=== PATIENT | male | born 1975 | race African-American/Black ===

== ENCOUNTER 2018-04-05 23:11 | Emergency (ER) | payer MEDICAID ==
[~2018-04-05] VITALS: Ht 157.5 cm; Wt 68.2 kg
[2018-04-05 23:13] VITALS: Ht 157.5 cm; Wt 68.2 kg
[2018-04-05] MEDS ORDERED: ADVIL200 MG PO (23:15)
[2018-04-05] MEDS ORDERED: BENADRYL25 MG PO (23:16)
[2018-04-05] MEDS ORDERED: PEPTO-BISMOL262 M1 PO (23:16)
[2018-04-05] MEDS ORDERED: MILK OF MAGNESI30 ML PO (23:16)
[2018-04-05] MEDS ORDERED: COLACE100 MG PO (23:16)
[2018-04-05] MEDS ORDERED: VISTARIL25 MG PO (23:17)
[2018-04-05] MEDS ORDERED: IMODIUM2 MG PO (23:17)
[2018-04-05] MEDS ORDERED: ZOFRAN4 MG PO (23:18)
[2018-04-05] MEDS ORDERED: CATAPRES0.1 MG PO (23:18)
[2018-04-05] MEDS ORDERED: BACLOFEN10 MG PO (23:18)
[2018-04-05] MEDS ORDERED: NAPROXEN250 MG PO (23:18)
[2018-04-05 23:41] LABS: HEMATOCRIT 36.3 % (42.0-54.0); HEMOGLOBIN 11.6 g/dL (13.5-17.5); LYMPHOCYTES 29.3 % (15-50); MCV 87.5 fL (80.0-100.0); MEAN PLATELET VOLUME 10.2 fL (7.4-10.4); NEUTROPHILS 67.2 % (40-80); PLATELET COUNT 330 10x3/uL (130-400); RBC 4.15 10x6/uL (4.20-6.10); RDW 14.8 % (11.5-14.5); WBC 7.9 10x3/uL (4.8-10.8)
[2018-04-05 23:48] LABS: ALBUMIN 2.8 g/dL (3.4-5.0); ALKALINE PHOSPHATASE 87 U/L (46-116); ALT (SGPT) 87 U/L (10-68); BILIRUBIN - TOTAL 0.18 mg/dL (0.2-1.3); CALC OSMOLALITY 287 mosm/kg (275-300); CALCIUM 8.2 mg/dL (8.5-10.1); CARBON DIOXIDE 23.8 mmol/L (21.0-32.0); CHLORIDE - SERUM 103 mmol/L (98-107); CREATININE - SERUM 1.4 mg/dL (0.6-1.3); POTASSIUM - SERUM 5.4 mmol/L (3.5-5.1); PROTEIN - SERUM 7.3 g/dL (6.4-8.2); SODIUM 137 mmol/L (136-145); UREA NITROGEN 24 mg/dL (7-18); eGFR NON AFRICAN AMERICAN 60 mL/min (90-120)
[2018-04-05 23:50] LABS: GLUCOSE 276 mg/dL (74-106)
[2018-04-05 23:52] LABS: AMYLASE - SERUM 119 U/L (25-115); LIPASE 201 U/L (73-393); TROPONIN-I < 0.017 ng/mL (0.000-0.060)
[2018-04-06 00:04] LABS: KETONE - SERUM NEGATIVE (NEGATIVE)
[2018-04-06 00:20] LABS: APPEARANCE CLEAR (CLEAR); BILIRUBIN NEGATIVE (NEGATIVE); COLOR YELLOW (YELLOW); GLUCOSE 500 mg/dL (NEGATIVE); KETONE NEGATIVE (NEGATIVE); NITRITE NEGATIVE (NEGATIVE); PROTEIN NEGATIVE (NEGATIVE); SPECIFIC GRAVITY 1.015 (1.005-1.020); UROBILINOGEN NORMAL (NORMAL)
[2018-04-06 00:29] LABS: UDS - AMPHET NEGATIVE QUAL (NEGATIVE); UDS - BARB NEGATIVE QUAL (NEGATIVE); UDS - BENZO NEGATIVE QUAL (NEGATIVE); UDS - COCAINE NEGATIVE QUAL (NEGATIVE); UDS - OPIATE NEGATIVE QUAL (NEGATIVE); UDS - PCP NEGATIVE QUAL (NEGATIVE); UDS - THC NEGATIVE QUAL (NEGATIVE)
[2018-04-06 03:56] VITALS: BP 110/89
[2018-04-07] MEDS ORDERED: NEURONTIN800 MG PO (07:25)
[2018-04-07] MEDS ORDERED: BENZTROPINE MESY1 MG PO (07:26)
[2018-04-07] MEDS ORDERED: ZYPREXA10 MG PO (07:26)
[2018-04-07] MEDS ORDERED: PRINIVIL20 MG PO (07:27)
[2018-04-07] MEDS ORDERED: HUMALOG 30100 UNITS/ SC (07:28)
[2018-04-07] MEDS ORDERED: LANTUS 100 UNIT/ML (07:30)
[2018-04-07] MEDS ORDERED: LANTUS SC (07:35)
[2018-04-09 14:13] VITALS: Ht 157.5 cm; Wt 68.2 kg
== END 2018-04-06 03:56 | disposition home or self-care (01) ==
LOC: D.ER 23:11
PROVIDERS: Emergency Medicine
DX: K59.00 Constipation, unspecified (principal); E87.5 Hyperkalemia; N28.9 Disorder of kidney and ureter, unspecified; R06.02 Shortness of breath

== ENCOUNTER 2018-04-06 21:14 | Inpatient (IN) | payer MEDICAID ==
[~2018-04-06] VITALS: Ht 157.5 cm; Wt 70.8 kg
[~2018-04-06 21:14] MED LIST: ADVIL200 MG PO; BACLOFEN10 MG PO; BENADRYL25 MG PO; CATAPRES0.1 MG PO; COLACE100 MG PO; IMODIUM2 MG PO; MILK OF MAGNESI30 ML PO; NAPROXEN250 MG PO; PEPTO-BISMOL262 M1 PO; VISTARIL25 MG PO; ZOFRAN4 MG PO
[2018-04-06 21:43] VITALS: BP 157/102
[2018-04-06 21:45] LABS: BASOPHILS 0.1 % (0-2); EOSINOPHILS 1.9 % (0-7); HEMATOCRIT 32.6 % (42.0-54.0); HEMOGLOBIN 10.3 g/dL (13.5-17.5); IMMATURE GRANULOCYTES 0.4 % (0-5); LYMPHOCYTES 15.2 % (15-50); MCH 27.7 pg (26.0-34.0); MCHC 31.6 g/dL (31.0-37.0); MCV 87.6 fL (80.0-100.0); MEAN PLATELET VOLUME 10.2 fL (7.4-10.4); MONOCYTES 7.4 % (2-11); PLATELET COUNT 318 10x3/uL (130-400); RBC 3.72 10x6/uL (4.20-6.10); RDW 15.2 % (11.5-14.5)
[2018-04-06 21:50] LABS: WBC 10.9 10x3/uL (4.8-10.8)
[2018-04-06 22:01] LABS: ALBUMIN 2.8 g/dL (3.4-5.0); ALKALINE PHOSPHATASE 86 U/L (46-116); ALT (SGPT) 79 U/L (10-68); BILIRUBIN - TOTAL 0.11 mg/dL (0.2-1.3); CALCIUM 8.3 mg/dL (8.5-10.1); CARBON DIOXIDE 26.8 mmol/L (21.0-32.0); CHLORIDE - SERUM 103 mmol/L (98-107); CREATININE - SERUM 1.2 mg/dL (0.6-1.3); PROTEIN - SERUM 6.9 g/dL (6.4-8.2); SODIUM 139 mmol/L (136-145); UREA NITROGEN 19 mg/dL (7-18); eGFR NON AFRICAN AMERICAN 71 mL/min (90-120)
[2018-04-06 22:04] LABS: CALC OSMOLALITY 279 mosm/kg (275-300); GLUCOSE 93 mg/dL (74-106); POTASSIUM - SERUM 4.1 mmol/L (3.5-5.1)
[2018-04-06 22:10] LABS: AMYLASE - SERUM 106 U/L (25-115); CKMB 3.9 U/L (0.0-3.6); LIPASE 113 U/L (73-393); MAGNESIUM - SERUM 2.4 mg/dL (1.8-2.4); TROPONIN-I 0.037 ng/mL (0.000-0.060)
[2018-04-06 22:12] LABS: CREATINE KINASE 1111 UL (21-232)
[2018-04-06 22:34] VITALS: BP 166/100
[2018-04-06 23:13] VITALS: BP 159/97
[2018-04-06 23:15] LABS: APPEARANCE CLEAR (CLEAR); BILIRUBIN NEGATIVE (NEGATIVE); COLOR YELLOW (YELLOW); GLUCOSE NEGATIVE (NEGATIVE); KETONE NEGATIVE (NEGATIVE); NITRITE NEGATIVE (NEGATIVE); PROTEIN NEGATIVE (NEGATIVE); SPECIFIC GRAVITY 1.005 (1.005-1.020); UROBILINOGEN NORMAL (NORMAL)
[2018-04-06 23:20] LABS: UDS - AMPHET NEGATIVE QUAL (NEGATIVE); UDS - BARB NEGATIVE QUAL (NEGATIVE); UDS - BENZO NEGATIVE QUAL (NEGATIVE); UDS - COCAINE NEGATIVE QUAL (NEGATIVE); UDS - OPIATE POSITIVE QUAL (NEGATIVE); UDS - PCP NEGATIVE QUAL (NEGATIVE); UDS - THC NEGATIVE QUAL (NEGATIVE)
[2018-04-06 23:28] VITALS: BP 165/90
[2018-04-07] VITALS (7 sets, daily range): BP systolic 126–167; BP diastolic 85–102; BMI 27.5
[2018-04-07 07:13] LABS: BASOPHILS 0.1 % (0-2); EOSINOPHILS 2.1 % (0-7); HEMATOCRIT 30.8 % (42.0-54.0); HEMOGLOBIN 9.8 g/dL (13.5-17.5); IMMATURE GRANULOCYTES 0.4 % (0-5); LYMPHOCYTES 22.3 % (15-50); MCH 27.7 pg (26.0-34.0); MCHC 31.8 g/dL (31.0-37.0); MEAN PLATELET VOLUME 10.2 fL (7.4-10.4); MONOCYTES 13.5 % (2-11); NEUTROPHILS 61.6 % (40-80); PLATELET COUNT 319 10x3/uL (130-400); RBC 3.54 10x6/uL (4.20-6.10); RDW 15.5 % (11.5-14.5); WBC 9.7 10x3/uL (4.8-10.8)
[2018-04-07] MEDS ORDERED: NEURONTIN800 MG PO (07:25)
[2018-04-07] MEDS ORDERED: BENZTROPINE MESY1 MG PO (07:26)
[2018-04-07] MEDS ORDERED: ZYPREXA10 MG PO (07:26)
[2018-04-07] MEDS ORDERED: PRINIVIL20 MG PO (07:27)
[2018-04-07] MEDS ORDERED: HUMALOG 30100 UNITS/ SC (07:28)
[2018-04-07] MEDS ORDERED: LANTUS 100 UNIT/ML (07:30)
[2018-04-07] MEDS ORDERED: LANTUS SC (07:35)
[2018-04-07 08:20] LABS: ALBUMIN 2.5 g/dL (3.4-5.0); ALKALINE PHOSPHATASE 77 U/L (46-116); ALT (SGPT) 72 U/L (10-68); CALC OSMOLALITY 290 mosm/kg (275-300); CALCIUM 8.1 mg/dL (8.5-10.1); CARBON DIOXIDE 27.5 mmol/L (21.0-32.0); CHLORIDE - SERUM 107 mmol/L (98-107); CKMB 2.9 U/L (0.0-3.6); CREATININE - SERUM 1.4 mg/dL (0.6-1.3); GLUCOSE 103 mg/dL (74-106); PROTEIN - SERUM 6.7 g/dL (6.4-8.2); SODIUM 145 mmol/L (136-145); TROPONIN-I 0.029 ng/mL (0.000-0.060); UREA NITROGEN 17 mg/dL (7-18); eGFR NON AFRICAN AMERICAN 60 mL/min (90-120)
[2018-04-07 08:25] LABS: CREATINE KINASE 1054 UL (21-232)
[2018-04-07 17:23] LABS: BASOPHILS 0.1 % (0-2); EOSINOPHILS 2.4 % (0-7); HEMATOCRIT 33.5 % (42.0-54.0); HEMOGLOBIN 10.6 g/dL (13.5-17.5); IMMATURE GRANULOCYTES 0.2 % (0-5); LYMPHOCYTES 20.1 % (15-50); MCH 27.7 pg (26.0-34.0); MCHC 31.6 g/dL (31.0-37.0); MCV 87.7 fL (80.0-100.0); MONOCYTES 8.1 % (2-11); NEUTROPHILS 69.1 % (40-80); PLATELET COUNT 309 10x3/uL (130-400); RBC 3.82 10x6/uL (4.20-6.10); RDW 15.3 % (11.5-14.5); WBC 9.7 10x3/uL (4.8-10.8)
[2018-04-07 17:31] LABS: APTT 30.7 SECONDS (22.8-39.4); INR 0.91 (0.85-1.17); PROTIME 11.8 SECONDS (11.6-15.0)
[2018-04-08] VITALS: BP 112/64
[2018-04-08 04:00] VITALS: BP 132/84
[2018-04-08 05:08] LABS: BASOPHILS 0.1 % (0-2); EOSINOPHILS 2.1 % (0-7); HEMATOCRIT 29.7 % (42.0-54.0); HEMOGLOBIN 9.4 g/dL (13.5-17.5); IMMATURE GRANULOCYTES 0.2 % (0-5); LYMPHOCYTES 19.2 % (15-50); MCH 27.1 pg (26.0-34.0); MCHC 31.6 g/dL (31.0-37.0); MEAN PLATELET VOLUME 10.2 fL (7.4-10.4); MONOCYTES 10.2 % (2-11); NEUTROPHILS 68.2 % (40-80); PLATELET COUNT 294 10x3/uL (130-400); RBC 3.47 10x6/uL (4.20-6.10); RDW 15.1 % (11.5-14.5); WBC 8.7 10x3/uL (4.8-10.8)
[2018-04-08 05:16] LABS: MCV 85.6 fL (80.0-100.0)
[2018-04-08 05:25] LABS: ALBUMIN 2.3 g/dL (3.4-5.0); ANION GAP 12.4 mmol/L (8-16); BILIRUBIN - TOTAL 0.3 mg/dL (0.2-1.3); CALCIUM 8.2 mg/dL (8.5-10.1); CARBON DIOXIDE 25.9 mmol/L (21.0-32.0); CREATININE - SERUM 1.3 mg/dL (0.6-1.3); POTASSIUM - SERUM 4.3 mmol/L (3.5-5.1); PROTEIN - SERUM 6.3 g/dL (6.4-8.2)
--- NOTE | 2018-04-08 08:35 | HP ---
PATIENT: NICOLE LEMONS MEDICAL RECORD: [id number] ACCOUNT: [id number] LOCATION:D.MS [place]2203 : [birth year] ADMISSION DATE: 04/07/18 PCP: CALEB,INTERNAL MEDICINE HISTORY AND PHYSICAL EXAMINATION CHIEF COMPLAINT: Difficulty breathing, abdominal distention. HISTORY OF PRESENT ILLNESS: The patient is a 42-year-old -[place]ian male who apparently has been residing at [facility]. The patient states for the last several days he has had fever, chills and sweat and had increasing shortness of breath, complaining of abdominal discomfort. He presented to the Emergency Room where the patient was found to have what appeared to be liver abscess as well as having pulmonary abscess and it was felt the patient warranted admission. PAST MEDICAL HISTORY: Apparently, the patient had an appendectomy. He has had cholecystectomy. He has also had a history of having diabetes since age 20. SOCIAL HISTORY: The patient states that he has been a methamphetamine user for the past 2 years, stopped 2 months ago when he was living in [place] but was admitted to [facility]. The patient reports having increasing shortness of breath with cough. No sputum production. FAMILY HISTORY: Mother and father apparently are healthy. Grandmother had diabetes mellitus. HABITS: The patient states he does smoke marijuana. He has been methamphetamine, IV drug user in the past. SOCIAL HISTORY: Born and raised in [place], is residing [facility]. He is , has no children. ALLERGIES: HE IS ALLERGIC TO TRAMADOL. HE STATES HE DEVELOPS RASHES. MEDICATIONS: He states he is on Humulin 20 units before each meal, also does take gabapentin - dose unknown. REVIEW OF SYSTEMS: CONSTITUTIONAL: He denies any headaches, seizure, or syncope. Denies change in visual or auditory acuity. PULMONARY: He does report having a shortness of breath. He has had cough. CARDIOVASCULAR: He has had no chest pain, palpitation, PND or orthopnea. GASTROINTESTINAL: He has had abdominal distention. He has had diarrhea since this admission. MUSCULOSKELETAL: He denies any musculoskeletal pain. PHYSICAL EXAMINATION: Upon presentation to the Emergency Room, VITAL SIGNS: The patient's temperature was 99.8, his pulse 140, his respirations 24. His blood pressure 176/109, O2 sat 100%. HEENT: Head is normocephalic. No lesions. Ears: TMs clear. Eyes: Pupils equal, round, reactive to light. His extraocular movements are intact. His nasal cavity, oral cavity, oropharynx clear. NECK: Supple. There is no adenopathy. HISTORY AND PHYSICAL [id number] HEARD,NICOLE HEART: Tachycardic. LUNGS: Decreased breath sounds in all bledsoe. No rales. ABDOMEN: Somewhat distended, diffusely and subjectively tender. RECTAL: Showed stool guaiac to be negative. LABORATORY DATA: The patient's ABGs on room air, pH 7.428, pCO2 is 41.3, his O2 was 78. His bicarbonate was 27.7. Sodium 139, potassium 4.1, chloride 103, CO2 is 26, BUN is 19, creatinine 1.2. The patient had an elevated creatinine kinase at 1111. His CK-MB was elevated at 3.9. Troponin was negative. Amylase and lipase were normal. D-dimer 0.59. White count was 10.9, hemoglobin 10.3, hematocrit 32.6, his platelets were 318. It was positive for opiates. Urinalysis was unremarkable. The patient had a chest x-ray done on the in the Emergency Room showing a 3-4 cm cavitary lesion in the right upper lobe of the lung. It was felt that it resembled a pulmonary abscess and cavitary neoplasm could not be excluded. Abdominal and pelvic CT scan was performed in the Emergency Room, which did reveal diffuse alveolar densities throughout both lungs felt that this could possibly be pneumonia, pulmonary edema could have the same appearance. He had a 2.3 cm hypodensity in the right lobe of the liver with a second smaller lesion more inferiorly, there was a 2.7 lesion in the posterior aspect of the lateral segment of the left lobe of the liver in correlation with previous chest x-ray, felt there was a possibility of pulmonary abscess. Also, possibly related to hepatic abscesses. It was suggested that the patient have a pre- and post-contrast MRI of the abdomen. He had moderate constipation. He had had cholecystectomy. ASSESSMENT: Possible hepatic abscess and pulmonary abscess. History of intravenous drug use. PLAN: The patient is admitted. Blood cultures will be obtained. Echocardiogram will be obtained. Placed on vancomycin well as Zosyn. We will obtain HIV testing and TB testing. He will have an MRI pre and post-contrast of the abdomen and pelvis and also have a CT of the chest, pulmonary consultation well as infectious disease consultation will be obtained. The patient will be placed on Humalog sliding scale, continue to evaluate. TRANSINT:[id number] Voice Confirmation ID: [id number] DOCUMENT ID: [id number] HISTORY AND PHYSICAL [id number] HEARDNICOLE JAMES MD at 0835 CC: [id number] DICTATION DATE: 04/07/18921 ASSEMBLER TRIM: 04/07/18 1039 ADM IN [place] [address] [place] [address]
[2018-04-08 09:24] VITALS: BP 121/58
[2018-04-08 13:06] VITALS: BP 139/91
[2018-04-08 17:18] VITALS: BP 130/89
[2018-04-08 20:00] VITALS: BP 132/79
[2018-04-09] VITALS: BP 99/70
[2018-04-09 04:00] VITALS: BP 112/65
[2018-04-09 04:02] LABS: BASOPHILS 0.1 % (0-2); EOSINOPHILS 2.1 % (0-7); HEMATOCRIT 30.2 % (42.0-54.0); HEMOGLOBIN 9.6 g/dL (13.5-17.5); IMMATURE GRANULOCYTES 0.2 % (0-5); MCH 27.4 pg (26.0-34.0); MCHC 31.8 g/dL (31.0-37.0); MCV 86.3 fL (80.0-100.0); MEAN PLATELET VOLUME 10.2 fL (7.4-10.4); MONOCYTES 8.7 % (2-11); NEUTROPHILS 74.9 % (40-80); PLATELET COUNT 270 10x3/uL (130-400); RDW 14.7 % (11.5-14.5); WBC 9.1 10x3/uL (4.8-10.8)
[2018-04-09 04:35] LABS: ALBUMIN 2.2 g/dL (3.4-5.0); ANION GAP 14.4 mmol/L (8-16); BILIRUBIN - TOTAL 0.34 mg/dL (0.2-1.3); CALCIUM 8.2 mg/dL (8.5-10.1); CARBON DIOXIDE 24.1 mmol/L (21.0-32.0); CREATININE - SERUM 1.4 mg/dL (0.6-1.3); POTASSIUM - SERUM 4.5 mmol/L (3.5-5.1); PROTEIN - SERUM 6.7 g/dL (6.4-8.2)
[2018-04-09 09:21] VITALS: BP 131/88
[2018-04-09 09:43] LABS: T4 THYROXINE 6.6 ug/dL (4.7-13.3); THYROID STIMULATING HORMONE 1.37 uIU/mL (0.36-3.74)
[2018-04-09 12:45] VITALS: BP 116/85
[2018-04-09 14:13] VITALS: Ht 157.5 cm; Wt 70.8 kg
--- NOTE | 2018-04-09 14:36 | EC ---
PATIENT:NICOLE LEMONS DATE OF SERVICE: 04/07/18 SEX: M MEDICAL RECORD: [id number] DATE OF : [birth year] LOCATION:D.MS Dillon220 AGE OF PATIENT: 42 ADMISSION DATE: 04/07/18 REFERRING PHYSICIAN: INTERPRETING PHYSICIAN: OLIVA CANO MD ECHOCARDIOGRAM REPORT ECHO CHARGES 4 ECHO COMPLETE Date: 04/07/18 CLINICAL DIAGNOSIS: R/O ENDOCARDITIS ECHOCARDIOGRAPHIC MEASUREMENTS (adult normal given) AC root (d.<3.7cm) 3.4 cm LV Septum d (<1.2 cm> 0.9 cm Valve Excursion 2.0 cm LV Septum (systole) 1.8 cm Left Atria (s.<4.0cm> 3.2 cm LVPW d(<1.2cm) 0.8 cm RV (d.<2.3cm) 2.5 cm LVPW (sytole) 0.9 cm LV diastole(<5.6CM) 4.7 cm MV E-F(>70mm/sec) cm LV systole 3.8 cm LVOT Diameter 1.8 cm MV exc.(>10mm) cm Est.ejection fraction (50-75%) % DOPPLER: LVIT cm/sec A 104 cm/sec E 87 cm/sec LA cm/sec RVSP 24.8 mmHg LVOT 112 cm/sec AOP1/2T m/s Asc. Ao 131 cm/sec RVOT 76 cm/sec RA cm/sec PA 88 cm/sec AV Gradient Peak 6.9 mmHg AV Mean 4.5 mmHg AV Area 2.8 cm MV Gradient Peak 6.9 mmHg MV Mean 3.2 mmHg MV Area cm COMMENTS: Caul Fat Puller: Jackie [facility] University Counselor: 1 Dr. Cano TAPE# PACS Pericardial Effusion N DATE OF SERVICE: 04/07/2018 FINDINGS: 1. Left ventricular chamber size is within normal limits. Left ventricular systolic function is normal. Overall ejection fraction is estimated at 60%. 2. Left atrium, right atrium, and right ventricle chamber sizes are within normal limit. 3. Valvular structures have normal structure and motion. No evidence of vegetative endocarditis. 4. Doppler interrogation reveals mild mitral regurgitation and mild tricuspid ECHOCARDIOGRAM REPORT [id number] NICOLE LEMONS regurgitation. No other valvular insufficiency or stenosis. Pulmonary systolic pressure is estimated at 25 mmHg. 5. No evidence of pericardial effusion or left ventricular thrombus. TRANSINT:[id number] Voice Confirmation ID: [id number] DOCUMENT ID: [id number] OLIVA CANO MD at 1436 CC: [id number] DICTATION DATE: 04/07/18 1140 ARMED SECURITY GUARD: 04/07/18 1852 ADM IN [facility] [address] [place] [address]
[2018-04-09 16:42] VITALS: BP 132/75
[2018-04-09 21:43] VITALS: BP 150/62
[2018-04-10 00:38] VITALS: BP 122/88
[2018-04-10 09:07] VITALS: BP 104/71
[2018-04-10 12:45] LABS: BASOPHILS 0.2 % (0-2); EOSINOPHILS 6.7 % (0-7); HEMATOCRIT 30.1 % (42.0-54.0); HEMOGLOBIN 9.6 g/dL (13.5-17.5); LYMPHOCYTES 23.5 % (15-50); MCH 27.5 pg (26.0-34.0); MCHC 31.9 g/dL (31.0-37.0); MCV 86.2 fL (80.0-100.0); MEAN PLATELET VOLUME 10.6 fL (7.4-10.4); MONOCYTES 8.9 % (2-11); NEUTROPHILS 60.7 % (40-80); PLATELET COUNT 289 10x3/uL (130-400); RBC 3.49 10x6/uL (4.20-6.10); RDW 14.2 % (11.5-14.5)
[2018-04-10 12:47] LABS: WBC 4.6 10x3/uL (4.8-10.8)
[2018-04-10 12:49] LABS: CALC OSMOLALITY 280 mosm/kg (275-300); CALCIUM 8.2 mg/dL (8.5-10.1); CARBON DIOXIDE 25.4 mmol/L (21.0-32.0); CHLORIDE - SERUM 103 mmol/L (98-107); CREATININE - SERUM 1.1 mg/dL (0.6-1.3); GLUCOSE 241 mg/dL (74-106); POTASSIUM - SERUM 4.7 mmol/L (3.5-5.1); SODIUM 136 mmol/L (136-145); eGFR NON AFRICAN AMERICAN 79 mL/min (90-120)
[2018-04-10 12:52] LABS: UREA NITROGEN 14 mg/dL (7-18)
[2018-04-10 12:57] VITALS: BP 148/96
[2018-04-10 19:51] VITALS: BP 126/83
[2018-04-10 20:06] LABS: ACID FAST SMEAR Negative (()); AFB SPECIMEN PROCESSING Concentration (())
[2018-04-10 23:57] VITALS: BP 141/71
[2018-04-11] VITALS (7 sets, daily range): BP systolic 119–156; BP diastolic 71–97
[2018-04-11 04:54] LABS: BASOPHILS 0.2 % (0-2); EOSINOPHILS 6.4 % (0-7); HEMATOCRIT 28.5 % (42.0-54.0); HEMOGLOBIN 9.2 g/dL (13.5-17.5); IMMATURE GRANULOCYTES 0.4 % (0-5); LYMPHOCYTES 34.1 % (15-50); MCH 27.9 pg (26.0-34.0); MCHC 32.3 g/dL (31.0-37.0); MCV 86.4 fL (80.0-100.0); MEAN PLATELET VOLUME 10.5 fL (7.4-10.4); NEUTROPHILS 48.9 % (40-80); PLATELET COUNT 315 10x3/uL (130-400); RDW 14.2 % (11.5-14.5)
[2018-04-11 05:15] LABS: ANION GAP 14.8 mmol/L (8-16); CALCIUM 8.3 mg/dL (8.5-10.1); CARBON DIOXIDE 24.6 mmol/L (21.0-32.0); CREATININE - SERUM 1.2 mg/dL (0.6-1.3); POTASSIUM - SERUM 4.4 mmol/L (3.5-5.1)
[2018-04-11 10:10] LABS: FUNGUS STAIN Final report (())
[2018-04-12 04:00] VITALS: BP 137/86
[2018-04-12 04:57] LABS: BASOPHILS 0.2 % (0-2); EOSINOPHILS 6.9 % (0-7); HEMATOCRIT 30.3 % (42.0-54.0); HEMOGLOBIN 9.8 g/dL (13.5-17.5); IMMATURE GRANULOCYTES 0.2 % (0-5); LYMPHOCYTES 28.9 % (15-50); MCH 27.6 pg (26.0-34.0); MCHC 32.3 g/dL (31.0-37.0); MCV 85.4 fL (80.0-100.0); MEAN PLATELET VOLUME 10.1 fL (7.4-10.4); MONOCYTES 10.4 % (2-11); NEUTROPHILS 53.4 % (40-80); PLATELET COUNT 320 10x3/uL (130-400); RBC 3.55 10x6/uL (4.20-6.10); WBC 4.6 10x3/uL (4.8-10.8)
[2018-04-12 05:05] LABS: INR 0.98 (0.85-1.17); PROTIME 12.5 SECONDS (11.6-15.0)
[2018-04-12 05:17] LABS: ALBUMIN 2.3 g/dL (3.4-5.0); ANION GAP 12.9 mmol/L (8-16); BILIRUBIN - TOTAL 0.15 mg/dL (0.2-1.3); CALCIUM 8.3 mg/dL (8.5-10.1); CARBON DIOXIDE 26.2 mmol/L (21.0-32.0); CREATININE - SERUM 1.3 mg/dL (0.6-1.3); MAGNESIUM - SERUM 1.8 mg/dL (1.8-2.4); PHOSPHOROUS 3.5 mg/dL (2.5-4.9); POTASSIUM - SERUM 4.1 mmol/L (3.5-5.1); PROTEIN - SERUM 6.7 g/dL (6.4-8.2)
[2018-04-12 08:37] VITALS: BP 142/97
[2018-04-12 10:17] LABS: CRYPTOCOCCUS AG - SERUM Negative (Negative)
--- NOTE | 2018-04-12 11:50 | MORECARE ---
CASE MANAGEMENT DISCHARGE SUMMARY PATIENT: NICOLE LEMONS UNIT: [id number] ADM DATE: 04/07/18 AGE: 42 : [birth year] SEX: M ROOM/BED: D.2203 AUTHOR: LUCINA CALLEJAS PHYSICIAN: REFERRING PHYSICIAN: ADELINA LAO DO DATE OF SERVICE: 04/12/18 Discharge Plan Patient Name: NICOLE LEMONS [facility] [facility] 1975 Planned Disposition: Anticipated Discharge Date: Discharge Date: Expected LOS: Initial Reviewer: [email or web address] Initial Review Date: 04/12/2018 Generated: 04/12/18 12:49 pm DCPIA - Discharge Planning Initial Assessment Updated by [email or web address]: Yolanda Mcleod on 04/12/18 11:48 am * Is the patient Alert and Oriented? Yes * PCP INTERNAL MED AT [facility] * Pharmacy [facility] IN [place] * Preadmission Environment Home with Family * ADLs Independent * List name and contact numbers for known caregivers / representatives who currently or will assist patient after discharge: MOTHER KESSLER, * Community resources currently utilized Home Health * Please name any agencies selected above. [facility] IN [place]. FOR DIABETES. * Can the patient safely return to the preadmission environment? Yes * Has this patient been hospitalized within the prior 30 days at any hospital? Yes Patient Name: NICOLE LEMONS Page 21928 at 1150 All edits/amendments must be made on the electronic document DICTATION DATE: 04/12/18 1149 ORTHOTICS PROSTHETICS TECHNICIAN: DM 04/12/18 1149 RPT#: [id number] DC DATE: STATUS: ADM IN [facility] [address] [place] [address] END OF REPORT
--- NOTE | 2018-04-12 11:58 | MORECARE ---
CASE MANAGEMENT DISCHARGE SUMMARY PATIENT: NICOLE LEMONS UNIT: [id number] ADM DATE: 04/07/18 AGE: 42 : [birth year] SEX: M ROOM/BED: D.2203 AUTHOR: LUCINA CALLEJAS PHYSICIAN: REFERRING PHYSICIAN: ANDREA LAO DO DATE OF SERVICE: 04/12/18 Discharge Plan Patient Name: NICOLE LEMONS Facility: [facility]:[place] : 1975 Planned Disposition: Anticipated Discharge Date: Discharge Date: Expected LOS: Initial Reviewer: [email or web address] Initial Review Date: 04/12/2018 Generated: 04/12/18 12:57 pm Comments DCP- Discharge Planning Updated by [email or web address]: Yolanda Mcleod on 04/12/18 10:[address] Patient Name: NICOLE LEMONS Admission Status: ER Accout number: [id number] Admission Date: 04-07-2018 : 1975 Admission Diagnosis:ABSCESS OF LUNG WITHOUT PNEUMONIA Attending: Andrea Lao Current LOS: 5 Anticipated DC Date: Planned Disposition: Primary Insurance: MEDICAID [place] Discharge Planning Comments: CM MET WITH PATIENT ABOUT DC PLANNING/NEEDS. STATES NO NEEDS. SAYS HE HAS HH NURSE FROM [facility] THAT SEES HIM FOR DIABETES. PATIENT IS WAITING FOR EGD NOW. CM WILL ATTEMPT TO VERIFY HIS STATUS WITH HH. CM WILL FOLLOW AND ASSIST NEEDED WITH DC PLANNING/NEEDS. Gatehouse Attendant: Yolanda Mcleod DCPIA - Discharge Planning Initial Assessment Updated by [email or web address]: Yolanda Mcleod on 04/12/18 11:48 am * Is the patient Alert and Oriented? Yes * PCP [facility] AT [facility] * Pharmacy [facility] IN [place] * Preadmission Environment Home with Family * ADLs Independent * List name and contact numbers for known caregivers / representatives who currently or will assist patient after discharge: [employer], , * Community resources currently utilized Home Health * Please name any agencies selected above. [facility]. FOR DIABETES. * Can the patient safely return to the preadmission environment? Yes * Has this patient been hospitalized within the prior 30 days at any hospital? Yes Last DP export: 04/12/18 10:50 am Patient Name: HEARD, NICOLE Page 43338 at 1158 All edits/amendments must be made on the electronic document DICTATION DATE: 04/12/181156 ELECTRICAL AND INSTRUMENT ENGINEER: ARNAV 04/12/181156 RPT#: [id number] DC DATE: STATUS: ADM IN [facility] [address] [place] [address] END OF REPORT
--- NOTE | 2018-04-12 12:06 | MORECARE ---
CASE MANAGEMENT DISCHARGE SUMMARY PATIENT: NICOLE LEMONS UNIT: [id number] ADM DATE: 04/07/18 AGE: 42 : [birth year] SEX: M ROOM/BED: D.2203 AUTHOR: LUCINA CALLEJAS PHYSICIAN: REFERRING PHYSICIAN: ANDREA LAO DO DATE OF SERVICE: 04/12/18 Discharge Plan Patient Name: NICOLE LEMONS Facility: [facility]:[place] : 1975 Planned Disposition: Anticipated Discharge Date: Discharge Date: Expected LOS: Initial Reviewer: [email or web address] Initial Review Date: 04/12/2018 Generated: 04/12/18 1:06 pm Comments DCP- Discharge Planning Updated by [email or web address]: Yolanda Mcleod on 04/12/18 10:[address] Patient Name: NICOLE LEMONS Admission Status: ER Accout number: [id number] Admission Date: 04-07-2018 : 1975 Admission Diagnosis:ABSCESS OF LUNG WITHOUT PNEUMONIA Attending: Andrea Lao Current LOS: 5 Anticipated DC Date: Planned Disposition: Primary Insurance: MEDICAID [place] Discharge Planning Comments: CM MET WITH PATIENT ABOUT DC PLANNING/NEEDS. STATES NO NEEDS. SAYS HE HAS HH NURSE FROM [facility] THAT SEES HIM FOR DIABETES. PATIENT IS WAITING FOR EGD NOW. CM WILL ATTEMPT TO VERIFY HIS STATUS WITH . CM WILL FOLLOW AND ASSIST NEEDED WITH DC PLANNING/NEEDS. Child Care Centre Manager: Yolanda Mcleod Appended by Yolanda Mcleod on 04/12/2018 11:59 COUNTER INSTALLER: CM SPOKE WITH POLLY AT [facility], SHE VERIFIED THE PATIENT DOES HAVE SERVICES WITH THEM. PHONE NUMBER [phone] AND FAX # [phone]. NURSING OR CM TO NOTIFY HH WHEN HE IS DISCHARGED. DCPIA - Discharge Planning Initial Assessment Updated by [email or web address]: Yolanda Mcleod on 04/12/18 11:48 am * Is the patient Alert and Oriented? Yes * PCP INTERNAL MED AT [facility] * Pharmacy [facility] [place] * Preadmission Environment Home with Family * ADLs Independent * List name and contact numbers for known caregivers / representatives who currently or will assist patient after discharge: [employer], , * Community resources currently utilized Home Health * Please name any agencies selected above. [facility] [place]. FOR DIABETES. * Can the patient safely return to the preadmission environment? Yes * Has this patient been hospitalized within the prior 30 days at any hospital? Yes External Providers External Provider: OTHER-OTHER Next Contact Date: Service Request Date: Service Type: Resolution: Reviewer: Comments: Last DP export: 04/12/18 10:57 am Patient Name: NICOLE LEMONS Page 71426 at 1206 All edits/amendments must be made on the electronic document DICTATION DATE: 04/12/18 1206 CORRUGATOR OPERATOR HELPER: ARNAV 04/12/18 1206 RPT#: [id number] DC DATE: STATUS: ADM IN [facility] [address] [place] [address] END OF REPORT
[2018-04-12 12:26] VITALS: BP 147/95
[2018-04-12 17:21] VITALS: BP 154/100
[2018-04-12 20:00] VITALS: BP 138/91
[2018-04-13 04:00] VITALS: BP 140/99
[2018-04-13 04:34] LABS: BASOPHILS 0.2 % (0-2); EOSINOPHILS 3.9 % (0-7); HEMATOCRIT 30.7 % (42.0-54.0); HEMOGLOBIN 9.9 g/dL (13.5-17.5); IMMATURE GRANULOCYTES 0.4 % (0-5); LYMPHOCYTES 24.3 % (15-50); MCH 27.3 pg (26.0-34.0); MCHC 32.2 g/dL (31.0-37.0); MCV 84.6 fL (80.0-100.0); MONOCYTES 8.2 % (2-11); PLATELET COUNT 349 10x3/uL (130-400); RBC 3.63 10x6/uL (4.20-6.10); RDW 13.9 % (11.5-14.5); WBC 5.1 10x3/uL (4.8-10.8)
[2018-04-13 04:48] LABS: APTT 30.4 SECONDS (22.8-39.4); PROTIME 12.7 SECONDS (11.6-15.0)
[2018-04-13 04:54] LABS: ALBUMIN 2.6 g/dL (3.4-5.0); BILIRUBIN - TOTAL 0.18 mg/dL (0.2-1.3); CALCIUM 9.1 mg/dL (8.5-10.1); CARBON DIOXIDE 28.1 mmol/L (21.0-32.0); CREATININE - SERUM 1.3 mg/dL (0.6-1.3); MAGNESIUM - SERUM 2.1 mg/dL (1.8-2.4); POTASSIUM - SERUM 4.1 mmol/L (3.5-5.1); PROTEIN - SERUM 7.2 g/dL (6.4-8.2)
[2018-04-13 05:09] LABS: PHOSPHOROUS 4.9 mg/dL (2.5-4.9)
[2018-04-13 08:00] VITALS: BP 149/90
[2018-04-13 10:17] LABS: HEPATITIS C ANTIBODY <0.1 S/CO RAT (0.0-0.9)
[2018-04-13 12:00] VITALS: BP 129/90
[2018-04-13 16:12] VITALS: BP 124/92
[2018-04-13 19:00] VITALS: BP 140/95
[2018-04-14 00:46] VITALS: BP 122/73
[2018-04-14 05:24] VITALS: BP 135/59
[2018-04-14 09:53] VITALS: BP 142/95
[2018-04-14] MEDS ORDERED: CLEOCIN HCL150 MG PO (10:15)
[2018-04-14] MEDS ORDERED: FLORASTOR250 MG PO (10:16)
[2018-04-16 11:14] LABS: FUNGUS CULTURE RESULT 1 Coccidioides immitis (()); FUNGUS MYCOLOGY CULTURE Final report (())
--- NOTE | 2018-04-16 12:54 | MORECARE ---
CASE MANAGEMENT DISCHARGE SUMMARY PATIENT: NICOLE LEMONS UNIT: [id number] ADM DATE: 04/07/18 AGE: 42 : [birth year] SEX: M ROOM/BED: D.2203 AUTHOR: LUCINA CALLEJAS PHYSICIAN: REFERRING PHYSICIAN: ANDREA LAO DO DATE OF SERVICE: 04/16/18 Discharge Plan Patient Name: NICOLE LEMONS Facility: [facility]:[place] : 1975 Planned Disposition: Anticipated Discharge Date: Discharge Date: 04/14/2018 Expected LOS: Initial Reviewer: [email or web address] Initial Review Date: 04/12/2018 Generated: 04/16/18 1:53 pm Comments DCP- Discharge Planning Updated by [email or web address]: Yolanda Mcleod on 04/12/18 10:[address] Patient Name: NICOLE LEMONS Admission Status: ER Accout number: [id number] Admission Date: 04-07-2018 : 1975 Admission Diagnosis:ABSCESS OF LUNG WITHOUT PNEUMONIA Attending: Andrea Lao Current LOS: 5 Anticipated DC Date: Planned Disposition: Primary Insurance: MEDICAID [place] Discharge Planning Comments: CM MET WITH PATIENT ABOUT DC PLANNING/NEEDS. STATES NO NEEDS. SAYS HE HAS HH NURSE FROM [facility] THAT SEES HIM FOR DIABETES. PATIENT IS WAITING FOR EGD NOW. CM WILL ATTEMPT TO VERIFY HIS STATUS WITH . CM WILL FOLLOW AND ASSIST NEEDED WITH DC PLANNING/NEEDS. Neck Cutter: Yolanda Mcleod Appended by Yolanda Mcleod on 04/12/2018 11:59 THREAD CUTTER TENDER: CM SPOKE WITH POLLY AT [facility], SHE VERIFIED THE PATIENT DOES HAVE SERVICES WITH THEM. PHONE NUMBER [phone] AND FAX # [phone]. NURSING OR CM TO NOTIFY HH WHEN HE IS DISCHARGED. DCPIA - Discharge Planning Initial Assessment Updated by [email or web address]: Yolanda Mcleod on 04/12/18 11:48 am * Is the patient Alert and Oriented? Yes * PCP INTERNAL MED AT [facility] * Pharmacy [facility] IN [place] * Preadmission Environment Home with Family * ADLs Independent * List name and contact numbers for known caregivers / representatives who currently or will assist patient after discharge: [employer], , * Community resources currently utilized Home Health * Please name any agencies selected above. [facility] IN [place]. FOR DIABETES. * Can the patient safely return to the preadmission environment? Yes * Has this patient been hospitalized within the prior 30 days at any hospital? Yes Last DP export: 04/12/18 11:06 am Patient Name: NICOLE LEMONS Page 92787 at 1254 All edits/amendments must be made on the electronic document DICTATION DATE: 04/16/18 1253 CLAY DIGGER: ARNAV 04/16/18 1253 RPT#: [id number] DC DATE:04/14/18 STATUS: DIS IN [place] [id number] [place] [address] END OF REPORT
--- NOTE | 2018-04-18 19:45 | PRO ---
PATIENT:NICOLE LEMONS MEDICAL RECORD: [id number] : [birth year] LOCATION:D.MS Dillon2203 ADMISSION DATE: 04/07/18 PROCEDURE PERFORMED BY: CEE RICHARD MD DATE OF PROCEDURE: 04/08/2018 PROCEDURE: Fiberoptic bronchoscopy. INDICATION: Mr. Lemons is a 42-year-old -Swedish gentleman who was admitted with bilateral pneumonia and right lung abscess. Fiberoptic bronchoscopy was carried out to inspect the airway for any obstructive lesion as well as to obtain specimen for culture and sensitivity. MEDICATIONS: Versed 4 mg IV in divided doses, fentanyl 100 mcg IV in divided doses, atropine 0.6 mg IM, and promethazine 12.5 mg IV times 1. MONITORING: EKG, pulse, blood pressure, and pulse ox were monitored throughout the procedure. PROCEDURE IN DETAIL: After obtaining conscious sedation, fiberoptic bronchoscope was passed through the mouth. The epiglottis was normal. The vocal cords were normal, moving equally on phonation. The main trachea was normal. The edwin was sharp. There was thick yellowish secretion on the right side. The subsegment to the right upper lobe was within normal range. No endobronchial lesion was seen. The bronchus intermedius was normal. The subsegment to the right middle lobe and right lower lobe was within normal range. No endobronchial lesion was seen. The thick yellow secretions were coming out from the superior segment of the right lower lobe. Specimen washing was obtained and sent for routine culture and sensitivity, AFB, and fungus. The left main bronchus was normal. The subsegment to the left upper lobe lingula and left lower lobe was within normal range. No endobronchial lesion was seen. Specimen washing also obtained mainly from the right side and sent for routine culture and sensitivity, AFB, fungus, and cytology. The patient tolerated the procedure very well. TRANSINT:[id number] Voice Confirmation ID: [id number] DOCUMENT ID: [id number] CEE RICHARD MD at 1945 CC: [id number] DICTATION DATE: 04/08/18 1353 CONVEYOR TECHNICIAN: 04/08/18 1608 DIS IN 04/14/18 [place] [address]
--- NOTE | 2018-04-18 19:45 | CN ---
PATIENT NAME:NICOLE LEMONS MEDICAL RECORD: [id number] : [birth year] LOCATION:D.MS Dillon220 ADMIT DATE: 04/07/18 ACCOUNT: [id number] CONSULTING PHYSICIAN: CEE RICHARD MD REFERRING PHYSICIAN: ADELINA LAO DO DATE OF CONSULTATION: 04/07/2018 HISTORY OF PRESENT ILLNESS: Mr. Lemons is a 42-year-old -[place] gentleman who is living in a assisted. According to the patient, he is sick for the last 3-4 days. He is coughing. He has shortness of breath. He has fever. According to the patient, before that he was doing good. He is also having a tremor for the last 1 month. The patient denies any weight loss. Also, when he was eating and drinking, he is coughing. He came into the ER, his temperature was 99.9. PAST MEDICAL HISTORY: Significant for: 1. Gastroesophageal reflux disease. 2. Constipation. 3. Chronic backache. 4. Hypertension. 5. Diabetes mellitus. 6. Tremor of both hands. PAST SURGICAL HISTORY: Appendectomy and knee surgery. ALLERGIES: HE IS ALLERGIC TO TRAMADOL. MEDICATIONS: [employer] is reviewed. PERSONAL AND SOCIAL HISTORY: The patient is current everyday smoker. He is a nondrinker. FAMILY HISTORY: Significant for hypertension. PHYSICAL EXAMINATION: GENERAL: Now, the patient is lying comfortably, but he is not in acute distress. VITAL SIGNS: The blood pressure is 167/98, pulse is 117, respirations 20, temperature 98.2, SPO2 is 100% on 2 liters nasal cannula. HEENT: Conjunctivae are pink. Sclerae are not icteric. NECK: Supple, no JVD. CHEST: There are bilateral crackles. No wheezing. HEART: Rhythm regular, normal sound, no murmur. ABDOMEN: Soft, bowel sounds present. No hepatosplenomegaly. RECTAL: Deferred. EXTREMITIES: No cyanosis, no clubbing, no pedal edema. CENTRAL NERVOUS SYSTEM: The patient is awake and alert. He has tremors. IMAGING: CT scan of the chest: There are bilateral infiltrate. There is right-sided lung abscess in the mid lung area with the air-fluid level. CT of the abdomen also showed the liver abscess. OTHER LABORATORY DATA: CBC: WBC was 10.9, hemoglobin 10.3, hematocrit 32.6, the platelet count is 318. Chemistry: Sodium 139, potassium 4.1, BUN is 19, CONSULT REPORT [id number] NICOLE LEMONS creatinine 1.2. Blood gases; the pH is 7.42, pCO2 is 41.3, the pO2 is 78.1, the bicarbonate is 27.3. IMPRESSION: 1. Acute hypoxic respiratory failure. 2. Bilateral pneumonia, possible aspiration. 3. Right lung abscess with air-fluid level. 4. Dysphagia. 5. Liver abscess. 6. History of IV drug abuse. There is no tobacco dependence syndrome. 7. Leukocytosis that has been improving. RECOMMENDATION: 1. Continuing antibiotic per Dr. Grider. 2. Speech pathology consult for swallowing evaluation. 3. We will proceed with fiberoptic bronchoscopy tomorrow. Dr. Santoyo, thank you for involving me in the care of Ms. Lemons. TRANSINT:[id number] Voice Confirmation ID: [id number] DOCUMENT ID: [id number] CEE RICHARD MD at 1945 CC: [id number] DICTATION DATE: 04/07/181648 FORKLIFT DRIVER: 04/07/18 2158 DIS IN 04/14/18 [facility] [address] [place] [address]
== END 2018-04-14 11:47 | disposition home health service (06) | DRG 177 ==
LOC: D.ER 21:14 → D.EDHOLD 04-07 01:48 → D.MS 04-07 01:48
PROVIDERS: Family Medicine; General Practice; Internal Medicine Gastroenterology; Internal Medicine Pulmonary Disease; Student in an Organized Health Care Education/Training Program; ADMIT Family Medicine
PROC: 0BDF8ZX Extraction of Right Lower Lung Lobe, Via Natural or Artificial Opening Endoscopic, Diagnostic (ICD-10-PCS; principal; 2018-04-08 13:12)
PROC: 0DB98ZX Excision of Duodenum, Via Natural or Artificial Opening Endoscopic, Diagnostic (ICD-10-PCS; 2018-04-12)
PROC: 0DB68ZX Excision of Stomach, Via Natural or Artificial Opening Endoscopic, Diagnostic (ICD-10-PCS; 2018-04-12)
PROC: 0DB58ZX Excision of Esophagus, Via Natural or Artificial Opening Endoscopic, Diagnostic (ICD-10-PCS; 2018-04-12)
PROC: 0D758ZZ Dilation of Esophagus, Via Natural or Artificial Opening Endoscopic (ICD-10-PCS; 2018-04-12)
DX: J85.1 Abscess of lung with pneumonia (principal); K75.0 Abscess of liver; J96.01 Acute respiratory failure with hypoxia; N17.9 Acute kidney failure, unspecified; I10 Essential (primary) hypertension; E11.9 Type 2 diabetes mellitus without complications; K22.2 Esophageal obstruction; K29.00 Acute gastritis without bleeding; K29.80 Duodenitis without bleeding; K21.0 Gastro-esophageal reflux disease with esophagitis